=== PATIENT | female | born 1940 | race African-American/Black ===

== ENCOUNTER 2019-02-09 23:04 | Inpatient (IN) | payer MEDICARE, MEDICAID ==
[~2019-02-09] VITALS: Ht 165.1 cm; Wt 48.5 kg
[2019-02-10] VITALS (7 sets, daily range): BP systolic 118–149; BP diastolic 38–70; Ht 165.1 cm; Wt 48.5 kg
[2019-02-10] MEDS ORDERED: ALBUTEROL SULF8.5 GM ×2 (01:48→01:49)
[2019-02-10] MEDS ORDERED: HYDROCORTISONE30 G8 (01:50)
[2019-02-10] MEDS ORDERED: NORVASC5 MG (01:50)
[2019-02-10] MEDS ORDERED: LIPITOR40 MG (01:51)
[2019-02-10] MEDS ORDERED: GLUCOPHAGE500 MG (01:51)
[2019-02-10] MEDS ORDERED: HALOPERIDOL1 MG (01:51)
[2019-02-10 07:11] LABS: BASOPHILS 0.3 % (0-2); EOSINOPHILS 0.1 % (0-7); HEMATOCRIT 31.7 % (36.0-48.0); HEMOGLOBIN 10.4 g/dL (12-16); IMMATURE GRANULOCYTES 0.9 % (0-5); LYMPHOCYTES 6.6 % (15-50); MCH 30.6 pg (26.0-34.0); MCHC 32.8 g/dL (31.0-37.0); MCV 93.2 fL (80.0-100.0); MEAN PLATELET VOLUME 11.1 fL (7.4-10.4); MONOCYTES 5.3 % (2-11); NEUTROPHILS 86.8 % (40-80); PLATELET COUNT 206 10x3/uL (130-400); RDW 13.9 % (11.5-14.5); WBC 18.3 10x3/uL (4.8-10.8)
[2019-02-10 07:41] LABS: AMYLASE - SERUM 18 U/L (25-115); CALC OSMOLALITY 276 mosm/kg (275-300); CALCIUM 7.3 mg/dL (8.5-10.1); CARBON DIOXIDE 26.5 mmol/L (21.0-32.0); CHLORIDE - SERUM 103 mmol/L (98-107); CREATININE - SERUM 0.4 mg/dL (0.6-1.3); LIPASE 96 U/L (73-393); MAGNESIUM - SERUM 1.9 mg/dL (1.8-2.4); PHOSPHOROUS 2.5 mg/dL (2.5-4.9); SODIUM 141 mmol/L (136-145); UREA NITROGEN 7 mg/dL (7-18); eGFR NON AFRICAN AMERICAN > 90 mL/min (90-120)
[2019-02-10 07:43] LABS: INR 1.01 (0.85-1.17); PROTIME 13.2 SECONDS (11.6-15.0)
[2019-02-10 07:45] LABS: APTT 26.2 SECONDS (22.8-39.4)
[2019-02-10 07:45] LABS: GLUCOSE 69 mg/dL (74-106)
--- NOTE | 2019-02-10 08:45 | NUR ---
PATIENT IN BED WITH IV INTACT. NO COMPLAINTS OR SIGNS OF DISTRESS. FAMILY AT BEDSIDE. CALL LIGHT WITHIN REACH.
[2019-02-10 15:05] LABS: ALBUMIN 1.3 g/dL (3.4-5.0); ALKALINE PHOSPHATASE 200 U/L (46-116); ALT (SGPT) 22 U/L (10-68); CALC OSMOLALITY 279 mosm/kg (275-300); CALCIUM 7.1 mg/dL (8.5-10.1); CARBON DIOXIDE 27.4 mmol/L (21.0-32.0); CHLORIDE - SERUM 105 mmol/L (98-107); CREATININE - SERUM 0.4 mg/dL (0.6-1.3); GLUCOSE 76 mg/dL (74-106); PROTEIN - SERUM 5.5 g/dL (6.4-8.2); SODIUM 142 mmol/L (136-145); UREA NITROGEN 8 mg/dL (7-18); eGFR NON AFRICAN AMERICAN > 90 mL/min (90-120)
[2019-02-10 15:07] LABS: POTASSIUM - SERUM 3.5 mmol/L (3.5-5.1)
--- NOTE | 2019-02-10 18:00 | NUR ---
NOTIFIED KEITH OF PATIENTS + BLOOD CULTURE IN [facility].
--- NOTE | 2019-02-10 19:10 | NUR ---
RCVD IN BED WITH NO S/S OF ANY ACUTE DISTRESS. RESTING QUIETLY WITH EYES CLOSED, AROUSES EASILY TO VOICE. FAMILY AT BEDSIDE. DENIES ANY PAIN AT THIS TIME. WILL NOTE ANY CHANGE.
[2019-02-11 01:43] VITALS: BP 137/55
--- NOTE | 2019-02-11 05:03 | NUR ---
I have reviewed this patient and I concur with the Shift Assessment completed by the Licensed Practical Nurse today this shift.
[2019-02-11 06:35] VITALS: BP 133/50
[2019-02-11 06:40] LABS: BASOPHILS 0.1 % (0-2); EOSINOPHILS 0.1 % (0-7); HEMOGLOBIN 10.3 g/dL (12-16); IMMATURE GRANULOCYTES 0.6 % (0-5); MCH 30.3 pg (26.0-34.0); MCHC 33.2 g/dL (31.0-37.0); MEAN PLATELET VOLUME 11.1 fL (7.4-10.4); MONOCYTES 6.4 % (2-11); NEUTROPHILS 85.8 % (40-80); RDW 13.8 % (11.5-14.5)
--- NOTE | 2019-02-11 07:00 | NUR ---
RESTING IN BED, EYES CLOSED. RESPIRATIONS EVEN AND UNLABORED. NO C/O PAIN. NO S/S OF ACUTE DISTRESS NOTED. SCDS ON. BILATERAL WOUNDS TO HEALS, SCABS PRESENT. IV TO LEFT FOREARM, D5LR INFUSING @ 75ML/HR. SITE PATENT WITHOUT REDNESS OR SWELLING. POTASSIUM 3.0 THIS AM, ON ELECTROLYTE PROTOCOL. DENIES ANY NEEDS AT THIS TIME. CALL LIGHT IN REACH. WILL CONTINUE TO MONITOR.
[2019-02-11 07:22] LABS: ALBUMIN 1.2 g/dL (3.4-5.0); ALKALINE PHOSPHATASE 297 U/L (46-116); ALT (SGPT) 28 U/L (10-68); BILIRUBIN - TOTAL 1.22 mg/dL (0.2-1.3); CALC OSMOLALITY 279 mosm/kg (275-300); CALCIUM 7.2 mg/dL (8.5-10.1); CARBON DIOXIDE 29.6 mmol/L (21.0-32.0); CHLORIDE - SERUM 106 mmol/L (98-107); CREATININE - SERUM 0.4 mg/dL (0.6-1.3); GLUCOSE 175 mg/dL (74-106); PROTEIN - SERUM 5.6 g/dL (6.4-8.2); SODIUM 140 mmol/L (136-145); UREA NITROGEN 4 mg/dL (7-18); eGFR NON AFRICAN AMERICAN > 90 mL/min (90-120)
[2019-02-11 07:23] LABS: MCV 91.2 fL (80.0-100.0); PLATELET COUNT 261 10x3/uL (130-400)
[2019-02-11 08:40] VITALS: BP 125/49
--- NOTE | 2019-02-11 11:19 | NUR ---
I have reviewed this patient and I concur with the Shift Assessment completed by the Licensed Practical Nurse today this shift.
--- NOTE | 2019-02-11 12:11 | NUR ---
PT ADMITTED YESTERDAY WITH NONSTAGEABLE PRESSURE INJURIES ON EACH HEEL. BOTH HAVE BLACK DRY ESCHAR.. THERE IS NO ODOR OR DRAINAGE NOTED. PT HAS CONTRACTURES OF LOWER EXTREMITIES. NONBLANCHABLE REDNESS IS ALSO NOTED ON LEFT MEDIAL HEEL AND RIGHT LATERAL FOOT. HEEL PROTECTORS ARE BEING APPLIED. DR. PEREIRA HAS BEEN CONSULTED. WOUND CARE WILL MONITOR.
[2019-02-11 13:00] VITALS: BP 145/61
[2019-02-11 16:45] VITALS: BP 142/44
--- NOTE | 2019-02-11 18:22 | NUR ---
RESTING IN BED, FAMILY AT BEDSIDE. NO C/O PAIN. NO S/S OF ACUTE DISTRESS NOTED. DENIES ANY NEEDS AT THIS TIME. CALL LIGHT IN REACH. WILL CONTINUE TO MONITOR.
[2019-02-11 20:00] VITALS: BP 147/69
--- NOTE | 2019-02-11 21:00 | NUR ---
PT IV INFULTRATED. NEW IV SITED RT FA 22G. ATTEMPTSX1. PT TOLERATED WELL. WILL CONTINUE ORDERED IV FLUIDS. CALL LIGHT IN REACH. DAUGHTER AT BEDSIDE.
[2019-02-12] VITALS: BP 154/59
--- NOTE | 2019-02-12 01:52 | NUR ---
I have reviewed this patient and I concur with the Shift Assessment completed by the Licensed Practical Nurse today this shift.
--- NOTE | 2019-02-12 03:40 | NUR ---
PT RESTING IN BED. EYES CLOSED. NO SIGNS OF DISTRESS. BREATHING EVEN AND UNLABORED. IV SITE RT FA DRESSING CLEAN DRY AND INTACT. NO SIGNS OF INFECTION. BOWEL SOUNDS ACTIVE. LUNG SOUNDS CLEAR. LT FA REDNESS AND SWELLING. LEGS CONTRACTED. DRESSING RT HEEL CLEAN DRY AND INTACT. DAUGHTER AT BEDSIDE. BED RAILS UPX3. CALL LIGHT IN REACH. BED LOWERED AND LOCKED.
[2019-02-12 04:00] VITALS: BP 143/53
[2019-02-12 05:40] LABS: ALBUMIN 1.2 g/dL (3.4-5.0); ALKALINE PHOSPHATASE 231 U/L (46-116); ALT (SGPT) 21 U/L (10-68); BILIRUBIN - TOTAL 0.62 mg/dL (0.2-1.3); CALCIUM 7.4 mg/dL (8.5-10.1); CARBON DIOXIDE 28.8 mmol/L (21.0-32.0); CHLORIDE - SERUM 103 mmol/L (98-107); CREATININE - SERUM 0.4 mg/dL (0.6-1.3); POTASSIUM - SERUM 4.1 mmol/L (3.5-5.1); PROTEIN - SERUM 5.3 g/dL (6.4-8.2); SODIUM 137 mmol/L (136-145); UREA NITROGEN 5 mg/dL (7-18); eGFR NON AFRICAN AMERICAN > 90 mL/min (90-120)
[2019-02-12 05:42] LABS: CALC OSMOLALITY 272 mosm/kg (275-300); GLUCOSE 127 mg/dL (74-106)
--- NOTE | 2019-02-12 07:39 | NUR ---
AROUSES TO VERBAL STIMULATION. ORIENTED X3. LUNGS ARE CLEAR BILATERALLY, NO COUGH NOTED. SKIN IS INTACT WTIHOUT REDNESS EXCEPT BILATERAL HEELS WHICH HAVE A DRY INTACT DRESSING IN PLACE. IV TO RIGHT FOREARM IS PATENT WTIHOUT REDNESS AT INSERTION SITE. NO NEEDS NOTED.
[2019-02-12 08:02] VITALS: BP 144/85
[2019-02-12] MEDS ORDERED: PROTONIX IV IV (10:06)
--- NOTE | 2019-02-12 10:45 | NUR ---
NUTRITION F/U PT TOLERATING REG DIET. 50 TO 100% INTAKE RECENT MEALS. WILL CONTINUE TO PROVIDE DIET, MONITOR PO INTAKE. RD FOLLOWING
--- NOTE | 2019-02-12 12:07 | MORECARE ---
CASE MANAGEMENT DISCHARGE SUMMARY PATIENT: NILDA SPICER UNIT: [id number] ADM DATE: 02/10/19 AGE: 78 : 38 SEX: F ROOM/BED: D.2208 AUTHOR: SHAHEEN TONY PHYSICIAN: REFERRING PHYSICIAN: ADEOLA SILVEIRA MD DATE OF SERVICE: 02/12/19 Discharge Plan Patient Name: [facility]IL[facility] SPIC[facility] [facility] 1940 Planned Disposition: Inpatient ADM Anticipated Discharge Date: Discharge Date: Expected LOS: Initial Reviewer: [email or web address] Initial Review Date: 02/10/2019 Generated: 02/12/19 1:06 pm Comments DCP- Discharge Planning Updated by [email or web address]: Maida Ramos on 02/12/19 10:[address] order received to transfer back to [place], I called and spoke with Dayday Sanders. I have also called [facility] admit to start the process, I spoke with Tori Patient Name: NILDA SPICER Page [id number] at 1207 All edits/amendments must be made on the electronic document DICTATION DATE: 02/12/191205 HAMMER DRIVER: CARMEN 02/12/191205 RPT#: [id number] DC DATE: STATUS: ADM IN [facility] [address] [place] [address] END OF REPORT
--- NOTE | 2019-02-12 12:27 | MORECARE ---
CASE MANAGEMENT DISCHARGE SUMMARY PATIENT: NILDA SPICER UNIT: [id number] ADM DATE: 02/10/19 AGE: 78 : 38 SEX: F ROOM/BED: D.2208 AUTHOR: SHAHEEN TONY PHYSICIAN: REFERRING PHYSICIAN: ADEOLA SILVEIRA MD DATE OF SERVICE: 02/12/19 Discharge Plan Patient Name: [facility]ILDA SPICER [facility] [facility] 1940 Planned Disposition: Inpatient ADM Anticipated Discharge Date: Discharge Date: Expected LOS: Initial Reviewer: [email or web address] Initial Review Date: 02/10/2019 Generated: 02/12/19 1:27 pm Comments DCP- Discharge Planning Updated by [email or web address]: Maida Ramos on 02/12/19 11:[address] P2P HAS BEEN DONE, GAYLA SPOKE WITH DR TAYLOR. I ALSO SPOKE WITH CHELLY RICHARDSON AT [facility] AND SHE RQUESTED CLINCIALS TO BE FAXED TO [phone] DCP- Discharge Planning Updated by [email or web address]: Maida Ramos on 02/12/19 10:[address] order received to transfer back to [place], I called and spoke with Dayday Sanders. I have also called [facility] admit to start the process, I spoke with Tori YUEN export: 02/12/19 11:07 Patient Name: NILDA SPICER Page [phone] at 1227 All edits/amendments must be made on the electronic document DICTATION DATE: 02/12/19 1227 LEADITE WORKER: CARMEN 02/12/19 1227 RPT#: [id number] DC DATE: STATUS: ADM IN [facility] [address] [place] [address] END OF REPORT
[2019-02-12 12:42] LABS: BASOPHILS 0.1 % (0-2); EOSINOPHILS 0.7 % (0-7); HEMATOCRIT 30.8 % (36.0-48.0); IMMATURE GRANULOCYTES 0.7 % (0-5); LYMPHOCYTES 15.9 % (15-50); MCH 29.6 pg (26.0-34.0); MCHC 32.5 g/dL (31.0-37.0); MCV 91.1 fL (80.0-100.0); MEAN PLATELET VOLUME 10.4 fL (7.4-10.4); MONOCYTES 6.8 % (2-11); NEUTROPHILS 75.8 % (40-80); RBC 3.38 10x6/uL (4.00-5.40); RDW 13.9 % (11.5-14.5)
[2019-02-12 12:43] LABS: WBC 10.1 10x3/uL (4.8-10.8)
[2019-02-12 12:44] LABS: PLATELET COUNT 326 10x3/uL (130-400)
[2019-02-12 13:47] VITALS: BP 156/45
--- NOTE | 2019-02-12 15:42 | NUR ---
REPORT CALLED TO ARIANNA COOK RN AT [facility]. ALL QUESTIONS ANSWERED. DISCHARGE INSTRUCTIONS GIVEN BOTH VERBALLY AND WRITTEN. ALL QUESTIONS ANSWERED. PATIENTS DAUGHTER,JOVANNY, VERBALIZED UNDERSTANDING OF SAME. PATIENT INCONTINENT OF URINE, SKIN CARE PER STAFF. LINENS CHANGED. WAITING ON AMBULANCE TO TRANSFER.
--- NOTE | 2019-02-12 16:15 | NUR ---
DISCHARGED TO [facility] VIA AMBULANCE. DAUGHTER HERE AT TIME OF TRANSFER. ALL BELONGINGS WITH PATIENT.
--- NOTE | 2019-02-14 14:04 | MORECARE ---
CASE MANAGEMENT DISCHARGE SUMMARY PATIENT: NILDA SPICER UNIT: [id number] ADM DATE: 02/10/19 AGE: 78 : 38 SEX: F ROOM/BED: D.2208 AUTHOR: SHAHEEN TONY PHYSICIAN: REFERRING PHYSICIAN: ADEOLA SILVEIRA MD DATE OF SERVICE: 02/14/19 Discharge Plan Patient Name: NILDA SPICER Facility: [facility]:[place] : 1940 Planned Disposition: Inpatient ADM Anticipated Discharge Date: Discharge Date: 02/12/2019 Expected LOS: Initial Reviewer: [email or web address] Initial Review Date: 02/10/2019 Generated: 02/14/19 3:04 pm DCP- Discharge Planning Updated by [email or web address]: Maida Ramos on 02/12/19 11:[address] P2P HAS BEEN DONE, GAYLA SPOKE WITH DR TAYLOR. I ALSO SPOKE WITH CHELLY RICHARDSON AT [facility] AND SHE RQUESTED CLINCIALS TO BE FAXED TO [phone] DCP- Discharge Planning Updated by [email or web address]: Maida Ramos on 02/12/19 10:[address] order received to transfer back to [place], I called and spoke with Dayday Sanders. I have also called [facility] to start the process, I spoke with Tori YUEN export: 02/12/19 11:27 Patient Name: NILDA SPICER Page [phone] at 1404 All edits/amendments must be made on the electronic document DICTATION DATE: 02/14/19 1404 BESSEMER BOTTOM MAKER: CARMEN 02/14/19 1404 RPT#: [id number] DC DATE:02/12/19 STATUS: DIS IN [facility] [address] [place] [address] END OF REPORT
== END 2019-02-12 16:31 | disposition short-term general hospital (02) | DRG 423 ==
LOC: D.MS 23:04
PROVIDERS: Internal Medicine Gastroenterology; ADMIT Emergency Medicine; ATTEND Emergency Medicine
PROC: 0FC98ZZ Extirpation of Matter from Common Bile Duct, Via Natural or Artificial Opening Endoscopic (ICD-10-PCS; principal; 2019-02-10 13:16)
PROC: 0JBR0ZZ Excision of Left Foot Subcutaneous Tissue and Fascia, Open Approach (ICD-10-PCS; 2019-02-11)
DX: K80.50 Calculus of bile duct without cholangitis or cholecystitis without obstruction (principal); R53.2 Functional quadriplegia; F17.203 Nicotine dependence unspecified, with withdrawal; E44.0 Moderate protein-calorie malnutrition; Z68.1 Body mass index [BMI] 19.9 or less, adult; L97.422 Non-pressure chronic ulcer of left heel and midfoot with fat layer exposed; E86.0 Dehydration; R47.02 Dysphasia; K59.09 Other constipation; K64.9 Unspecified hemorrhoids; Z91.81 History of falling; M54.9 Dorsalgia, unspecified; M19.90 Unspecified osteoarthritis, unspecified site; N95.9 Unspecified menopausal and perimenopausal disorder; H26.9 Unspecified cataract; M62.462 Contracture of muscle, left lower leg; M62.461 Contracture of muscle, right lower leg; L60.2 Onychogryphosis; L89.620 Pressure ulcer of left heel, unstageable; L89.610 Pressure ulcer of right heel, unstageable